=== PATIENT | male | born 1965 | race Two or more races ===

== ENCOUNTER 2020-01-15 18:51 | Emergency (ER) | payer SELFPAY ==
[2020-01-15 18:53] VITALS: BP 153/92; PULSE 83; RESP 18; TEMP 37.3; O2SAT 98; BMI 21.6
[2020-01-15 19:11] VITALS: BP 153/94; PULSE 83; RESP 18; TEMP 37.3; O2SAT 98
--- NOTE | 2020-01-15 19:20 | HMH.EDUTC ---
[facility] [place] Disposition Clinical Impression: Mouth problem Disposition: Home, Self-Care Condition on Discharge: Good Instructions: Doxycycline Additional Instructions: Gargle warm salt water and warm water with baking soda to help with mouth pain Take medication as prescribed Keep appointment in Dr Abrams office on Sunday as scheduled Return if needed Straight to ER if any life threatening symptoms Soft foods may be easier to eat Go straight to ER if you have trouble breathing Prescriptions: Doxycycline Monohydrate [Doxycycline Lemhi 100mg Tab] 100 mg PO BID 10 Days #20 tab Prescription Printed Referrals: PCP,Humera [Primary Care Provider] - Trevon Skinner MD [Staff Physician] - 01/19/20 12:30 pm Forms: Work/School Release Time of Disposition: 19:27 Medical Decision Making - Aaron Inquiry Pt receiving controlled substance: Humera Walker was queried for this patient: No Vital Signs: 01/15/20 18:53 01/15/20 19:11 Temperature 99.2 F 99.2 F Temperature Source Oral Pulse Rate 83 Pulse Rate [Left] 83 Respiratory Rate 18 18 Blood Pressure 153/94 H Blood Pressure [Right Arm] 153/92 H Blood Pressure Mean [Right Arm] 112 Blood Pressure Source [Right Arm] Automatic Cuff Blood Pressure Position [Right Arm] Sitting 02 Sat by Pulse Oximetry 98 Oxygen Delivery Method Room Air - Physician Consults Physician Consulted: Brody Time: 18:55 Reason -: ENT Eval/Care Comment/Response: Spoke with Dr Skinner and described area observed on roof of mouth, advised to place patient on Doxy 100mg BID and he would see him in the office at 1230 on SundayJan 18 for further treatment and evaluation [facility] [place] HPI - General Stated complaint: inside of mouth infected Time Seen by Provider: 01/15/20 19:20 Mode of Arrival: Ambulatory Source of Information: Patient Limitations: No Limitations Description of Symptoms (Recalled from Triage Doc. by RN): Pt c/o of mouth pain and thinks it is infected x1 week HEENT Symptoms (Recalled from RN notes): No Resp Symptoms (Recalled from RN notes): No Skin Symptoms (Recalled from RN notes): Yes MS Symptoms (Recalled from RN notes): No Functional Status (Recalled from RN notes): WNL - History of Present Illness Provider Complaint: Patient states that he has been having pain on the right side of the roof of his mouth States that he noticed it looked swollen and hard and uncomfortable States that he noticed it about a week ago and it has continued to get worse States that he came in tonight because he was uncomfortable when he eat and came in to see if may need antibiotics - Related Data Previous Rx's Medication Instructions Recorded Doxycycline Monohydrate 100 mg PO BID 10 Days #20 tab 01/15/20 [Doxycycline Lemhi 100mg Tab] Allergies Allergy/AdvReac Type Severity Reaction Status Date / Time No Known Allergies Allergy Unverified 09/06/18 10:47 - Worker's Comp Is this a Worker's Comp case?: No Is this an [employer] Worker's Comp?: No Is this a Haritha Worker's Comp?: No [facility] History - Hepatitis A Screen Drug use history?: No High risk sexual behaviors?: No History of sexually transmitted infection?: No Currently employed?: No Childcare worker?: No Do you have indoor plumbing?: Yes Do you have electricity?: Yes Attestation statement:: This patient has been screened for Hepatitis A risk factors. I have reviewed the patient's past medical history: Yes Medical History: Denies:: Cancer, Diabetes Mellitus Type 1, Diabetes Mellitus Type 2, Internal Pacemaker, MRSA Other Surgeries: No: Pacemaker Amputation: No Fractures: No - Social History Smoking Status: Current every day smoker Tobacco Type: cigarettes # Packs/Day (cigarettes): 1 Alcohol Intake: never Occupational Status: employed ROS Obtained: Yes All systems reviewed & no additional complaints, Yes Systems reviewed as appropriate & no additional complaints - Constitutional Constitutional: Reports system revie
== END 2020-01-15 19:38 | disposition home or self-care (01) ==
PROVIDERS: Emergency Provider Nurse Practitioner
DX: K13.70 Unspecified lesions of oral mucosa (principal); F17.210 Nicotine dependence, cigarettes, uncomplicated
CPT/HCPCS: 99201

== ENCOUNTER → 2020-03-11 09:18 | Outpatient (CLI) | payer MEDICAID, SELFPAY ==
[2020-03-11 09:24] LABS: MANUAL DIFFERENTIAL MANUAL DIFFERENTIAL (MANUAL DIFF)
--- NOTE | 2020-03-11 09:35 | CT_ITS ---
PROCEDURE: CT FACIAL BONES WO/W CON CLINICAL HISTORY: rcurrent cyst roof of mouth possib. Abscess x 3 months COMPARISON: No exams were available for comparison TECHNIQUE: Axial images obtained with sagittal and coronal reformats. All CT scans at the facility use one or more dose reduction, viz: automated exposure control, ma/kV adjustment per patient size (including targeted exams where dose is matched to indication, i.e. head), or iterative reconstruction technique. FINDINGS: There is a 2 x 1.8 cm lucent lesion involving the right maxilla in the right paracentral region. This is causing expansion of the maxilla anteriorly and disruption of the posterior wall of the maxilla. The lesion does appear to be epicenter within the maxilla itself. The posterior wall the maxilla however is been eroded. The lesion measures approximately 40 Hounsfield units. Lucency is noted around the root of the right lateral incisor at this region. This route does communicate with the lucent lesion. The anterior margin of the maxilla is bowed anteriorly slightly and there is thinning but no aggressive destruction. No central calcifications evident within the lesion. CT of dentigerous cysts. No underlying soft tissue mass. No cervical adenopathy. There is mild mucosal thickening of the left maxillary sinus. No mastoid effusion. There are few scattered small lymph nodes in the neck. IMPRESSION: Well-circumscribed cystic lesion of the maxilla on the right as described above. There is slight bowing of the cortex anteriorly and disruption of the cortex posteriorly without significant enhancement. 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 Differential diagnosis includes unilocular ameloblastoma, or dentigerous cyst. An abscess is felt to be less likely. A chronic treated abscess would be included in the differential diagnosis. Dictated by: Salvatore Orosco MD 03/16/2020 09:19 Salvatore Orosco MD in [place] 03/16/2020 09:19
[2020-03-11 10:24] LABS: Basophils % 0.7 % (0.1-2.0); Eosinophils # 0.1 K/mm3 (0.0-0.4); Eosinophils % 1.3 % (0.1-12.0); Hematocrit 45.4 % (42.0-52.0); Hemoglobin 14.1 g/dL (14.1-18.0); Lymphocytes # 2.5 K/mm3 (0.7-4.5); Lymphocytes % 42.7 % (10-50); Mean Corpuscular HGB Conc 31.1 g/dL (31.8-35.4); Mean Corpuscular Hemoglobin 33.3 pg (27.0-31.2); Mean Platelet Volume 8.3 fl (7.4-10.4); Monocytes # 0.4 K/mm3 (0.1-1.0); Monocytes % 7.1 % (1.7-9.3); Neutrophils # 2.9 K/mm3 (1.8-7.8); Neutrophils % 48.2 % (37.0-80.0); Platelet Count 175 K/mm3 (142-424); Red Blood Count 4.24 M/mm3 (4.60-6.20); Red Cell Distribution Width 12.5 % (11.5-17.5); White Blood Count 5.9 K/mm3 (4.8-10.8)
[2020-03-11 10:48] LABS: Erythrocyte Sedimentation Rate 13 mm/hr (0-20)
[2020-03-11 11:06] LABS: Eosinophils % 2 % (0-3); Lymphocytes % 41 % (10-50); Monocytes % 4 % (2-9); Neutrophils % 53 % (42-76); Platelet Estimate Normal; Total Cells Counted 100
[2020-03-11 11:07] LABS: Anisocytosis 2+; Macrocytosis 2+
[2020-03-11 11:09] LABS: Chloride 98 mmol/L (98-107); Potassium 4.1 mmoL/L (3.5-5.1); Sodium 134 mmol/L (136-145)
[2020-03-11 11:12] LABS: Alanine Aminotransferase 23 U/L (12-78); Albumin Level 4.2 g/dl (3.5-5.0); Albumin/Globulin Ratio 1.5 (1.1-1.8); Alkaline Phosphatase 77 U/L (38-126); Anion Gap 10.1 mEq/L (5-15); Aspartate Amino Transferase 56 U/L (17-59); Bilirubin,Total 0.9 mg/dl (0.2-1.3); Blood Urea Nitrogen 5 mg/dl (9-20); Calcium 9.1 mg/dl (8.4-10.2); Carbon Dioxide 30 mmol/L (22.0-30.0); Estimated Glomerular Filt Rate 117 ml/min (>60); GFR (African American) 142 ML/MIN (>60); Globulin 2.8 g/dL (1.3-3.2); Glucose 102 mg/dl (74-100)
== END ==
PROVIDERS: Visit Provider Otolaryngology
DX: K09.9 Cyst of oral region, unspecified (principal); K12.2 Cellulitis and abscess of mouth; K13.70 Unspecified lesions of oral mucosa
CPT/HCPCS: 36415; 70488; 80053; 85007; 85014; 85018; 85048; 85049; 85651; Q9967

== ENCOUNTER 2020-12-08 10:24 | Emergency (ER) | payer SELFPAY ==
[2020-12-08 10:56] VITALS: BP 123/87; PULSE 85; RESP 19; TEMP 36.8; O2SAT 99; BMI 22.8
--- NOTE | 2020-12-08 11:01 | HMH.EDUTC ---
[facility] [place] Disposition Clinical Impression: Dental abscess Disposition: Home, Self-Care Condition on Discharge: Good Instructions: Tooth Abscess, Ibuprofen, Amoxicillin and Clavulanic Acid Additional Instructions: Take medication as prescribed Use dental balls as you was instructed Follow up with Dentist for further treatment and evaluation Return if needed Straight to ER if any life threatening symptoms Prescriptions: Ibuprofen [Ibuprofen 600mg Tablet] 600 mg PO Q6HP PRN #20 tab PRN Reason: Moderate Pain Transmission Status: Pending to [facility] # Amoxicillin/Potassium Clav [Augmentin 875-125 Tablet] 1 tab PO Q12H 10 Days #20 tab Transmission Status: Pending to [facility] # Referrals: Provider,Referral, MD [Primary Care Provider] - As needed Time of Disposition: 11:06 Medical Decision Making - Aaron Inquiry Pt receiving controlled substance: No Aaron was queried for this patient: No Vital Signs: 12/08/20 10:56 Temperature 98.2 F Temperature Source Oral Pulse Rate [Left] 85 Respiratory Rate 19 Blood Pressure [Right Arm] 123/87 Blood Pressure Mean [Right Arm] 99 02 Sat by Pulse Oximetry 99 Orders (Tests/Meds): ED MEDICATIONS Discontinued Medications Generic Name Dose Route Start Last Admin Trade Name Freq PRN Reason Stop Dose Admin Benzocaine/Butamben/Tetracaine HCl 1 gm 12/08/20 11:01 Tetracaine/Benzocaine/Butamben 56 Gm [place] TP 12/08/20 11:02 ONCE ONE Lidocaine HCl 15 ml 12/08/20 11:01 Lidocaine 2% Viscous Audrey 15ml Udc PO 12/08/20 11:02 ONCE ONE [facility] [place] HPI - General Stated complaint: abcess in mouth Time Seen by Provider: 12/08/20 11:01 Mode of Arrival: Ambulatory Source of Information: Patient Limitations: No Limitations Description of Symptoms (Recalled from Triage Doc. by RN): pt c/o pain in the top of his mouth. HEENT Symptoms (Recalled from RN notes): Yes (mouth pain) Resp Symptoms (Recalled from RN notes): No Skin Symptoms (Recalled from RN notes): No MS Symptoms (Recalled from RN notes): No Functional Status (Recalled from RN notes): na - History of Present Illness Provider Complaint: Patient states that he has had a bad tooth on his right upper back tooth States that he has been waiting to see dentist States that now he is having pain and swelling in his right upper gums/jaw area and thinks his tooth is infected like it has been before so he came in to get some antibiotics - Related Data Previous Rx's Medication Instructions Recorded Amoxicillin/Potassium Clav 1 tab PO Q12H 10 Days #20 tab 12/08/20 [Augmentin 875-125 Tablet] Ibuprofen [Ibuprofen 600mg 600 mg PO Q6HP PRN #20 tab 12/08/20 Tablet] Allergies Allergy/AdvReac Type Severity Reaction Status Date / Time No Known Allergies Allergy Verified 12/08/20 11:01 - Worker's Comp Is this a Worker's Comp case?: No [facility] History - Hepatitis A Screen Drug use history?: No High risk sexual behaviors?: No History of sexually transmitted infection?: No Currently employed?: No Childcare worker?: No Do you have indoor plumbing?: Yes Do you have electricity?: Yes Attestation statement:: This patient has been screened for Hepatitis A risk factors. I have reviewed the patient's past medical history: Yes Medical History: Denies:: Cancer, Diabetes Mellitus Type 1, Diabetes Mellitus Type 2, Internal Pacemaker, MRSA Other Surgeries: Yes: No Previous Surgery, Other. No: Pacemaker Amputation: No Fractures: No - Social History Smoking Status: Current every day smoker Tobacco Type: cigarettes # Packs/Day (cigarettes): 1 Alcohol Intake: never Substance Use Type: denies use Occupational Status: employed Family Hx:: Hyperlipidemia ROS Obtained: Yes All systems reviewed & no additional complaints, Yes Systems reviewed as appropriate & no additional complaints - Constitutional Constitutional: Reports system reviewed and no additional
[2020-12-08 11:03] VITALS: BP 119/80; PULSE 84; RESP 19; TEMP 36.9
== END 2020-12-08 11:15 | disposition home or self-care (01) ==
PROVIDERS: Emergency Provider Nurse Practitioner
DX: K04.7 Periapical abscess without sinus (principal); K02.9 Dental caries, unspecified; F17.210 Nicotine dependence, cigarettes, uncomplicated
CPT/HCPCS: 99202; G0463

== ENCOUNTER 2021-05-22 13:14 | Emergency (ER) | payer OTHER, SELFPAY ==
[2021-05-22 15:25] VITALS: BP 120/69; PULSE 77; RESP 18; TEMP 37.1; O2SAT 99; BMI 20.5
[2021-05-22 15:27] VITALS: BP 120/69; PULSE 77; RESP 18; TEMP 37.1; O2SAT 99
--- NOTE | 2021-05-22 15:29 | HMH.EDUTC ---
[facility] [place] Clinical Impression: Encounter for laboratory testing for COVID-19 virus Disposition: Home, Self-Care Condition on Discharge: Good Instructions: DI for COVID-19 (Suspected or Confirmed ), Preventing the Spread of Coronavirus Discharge Instructions Additional Instructions: *Monitor Temp, Over the counter Motrin or Tylenol as directed/as needed Tylenol every 4 hours and Motrin every 6 hours (as long as your family doctor has told you that you can take it) for fever or pain. and straight to ER if unable to lower temp less than 101.0 after medication given *Warm salt water gargles may help to soothe the throat *Throat Lozenges *Warm fluids like tea with honey may help to soothe the throat *Sleep elevated *Humidifier/Vaporizer Follow up IMMEDIATELY for new or worsening symptoms or no Noticeable improvement over the next 48-72 hours. 911 for difficulty breathing or swallowing You were tested for today for COVID19 your test result should be back in the next 24-48 hours, you may check your results on the [facility] [facility] Portal if you have trouble logging on you may call [employer] support for assistance You was given a handout with instructions for Self Quarantine and Self isolation for while you wait on test results and what to do if they are positive If you are positive the Health Dept will be contacting you also Make sure to take your Vitamins Vit. C Vit D and Zinc if you can take them Referrals: Provider,Referral, [Primary Care Provider] - Time of Disposition: 15:31 Medical Decision Making - Aaron Inquiry Pt receiving controlled substance: No Aaron was queried for this patient: No Vital Signs: 05/22/21 15:25 05/22/21 15:27 Temperature 98.7 F 98.7 F Temperature Source Oral Oral Pulse Rate 77 Pulse Rate [Left Radial] 77 Respiratory Rate 18 18 Blood Pressure 120/69 Blood Pressure [Right Arm] 120/69 Blood Pressure Mean [Right Arm] 86 Blood Pressure Source [Right Arm] Automatic Cuff Blood Pressure Position [Right Arm] Sitting 02 Sat by Pulse Oximetry 99 Oxygen Delivery Method Room Air Room Air Orders (Tests/Meds): ORDERS Category Date Time Status Covid-19 Nasal PCR ([facility]) Routine Lab 05/22/21 15:27 Ordered [facility] [place] HPI - General Stated complaint: covid exposed, test Time Seen by Provider: 05/22/21 15:29 Mode of Arrival: Ambulatory Source of Information: Patient Limitations: No Limitations Description of Symptoms (Recalled from Triage Doc. by RN): c/o KHANNA, cough and congestion HEENT Symptoms (Recalled from RN notes): Yes Resp Symptoms (Recalled from RN notes): No Skin Symptoms (Recalled from RN notes): No MS Symptoms (Recalled from RN notes): No Functional Status (Recalled from RN notes): na - History of Present Illness Provider Complaint: Patient states that he was recently exposed to someone that was positive for COVID States that he has been having cough, nasal congestion and cough State that he wanted to get tested for COVID - Related Data Previous Rx's Medication Instructions Recorded Amoxicillin/Potassium Clav 1 tab PO Q12H 10 Days #20 tab 12/08/20 [Augmentin 875-125 Tablet] Ibuprofen [Ibuprofen 600mg 600 mg PO Q6HP PRN #20 tab 12/08/20 Tablet] Allergies Allergy/AdvReac Type Severity Reaction Status Date / Time No Known Allergies Allergy Verified 12/08/20 11:01 - Worker's Comp Is this a Worker's Comp case?: No [facility] History - Hepatitis A Screen Drug use history?: No High risk sexual behaviors?: No History of sexually transmitted infection?: No Currently employed?: No Childcare worker?: No Do you have indoor plumbing?: Yes Do you have electricity?: Yes Attestation statement:: This patient has been screened for Hepatitis A risk factors. I have reviewed the patient's past medical history: Yes Medical History: Denies:: Cancer, Diabetes Mellitus Type 1, Diabetes Mellitus Type 2, Internal Pacemaker, MRSA Other Surgeries: Yes: No Prev
== END 2021-05-22 15:36 | disposition home or self-care (01) ==
PROVIDERS: Emergency Provider Nurse Practitioner
DX: U07.1 COVID-19 (principal); F17.210 Nicotine dependence, cigarettes, uncomplicated
CPT/HCPCS: 99202; C9803; G0463; U0003; U0005

== ENCOUNTER 2021-12-12 16:37 | Emergency (ER) | payer SELFPAY ==
[2021-12-12 17:25] VITALS: BP 134/79; PULSE 78; RESP 19; TEMP 36.6; O2SAT 97; BMI 18.5
--- NOTE | 2021-12-12 17:59 | HMH.EDUTC ---
[facility] [place] Disposition Clinical Impression: Bee sting reaction Qualifiers: Encounter type: initial encounter Injury intent: undetermined intent Qualified Code(s): T63.444A - Toxic effect of venom of bees, undetermined, initial encounter Disposition: Home, Self-Care Condition on Discharge: Good Instructions: How to Care for an Insect Bite or Sting, Insect Bites and Stings, DI for Insect Bites and Stings Additional Instructions: Over the counter Benadryl may help with itching and swelling Start oral steriods tomorrow Follow up with [facility] for testing for allergy's Return if needed Straight to ER if any life threatening symptoms Prescriptions: methylPREDNISolone [Medrol 4mg tab] 4 mg PO DIRECTED #21 tab Transmission Status: Received by [facility] #[id number] Referrals: Provider,Referral, MD [Primary Care Provider] - Forms: Work/School Release Time of Disposition: 18:23 Medical Decision Making - Aaron Inquiry Pt receiving controlled substance: No Aaron was queried for this patient: No Vital Signs: 12/12/21 17:25 12/12/21 18:17 Temperature 97.8 F 97.8 F Temperature Source Oral Pulse Rate 78 Pulse Rate [Right Brachial] 78 Respiratory Rate 19 19 Blood Pressure 134/79 Blood Pressure [Right Arm] 134/79 Blood Pressure Mean [Right Arm] 97 Blood Pressure Source [Right Arm] Automatic Cuff Blood Pressure Position [Right Arm] Sitting 02 Sat by Pulse Oximetry 97 Oxygen Delivery Method Room Air Orders (Tests/Meds): ED MEDICATIONS Discontinued Medications Generic Name Dose Route Start Last Admin Trade Name Freq PRN Reason Stop Dose Admin Diphenhydramine HCl 25 mg 12/12/21 18:03 12/12/21 18:10 Diphenhydramine 50mg/Ml Vial IM 12/12/21 18:04 25 mg ONCE ONE Administration Famotidine 20 mg 12/12/21 18:03 12/12/21 18:17 Famotidine 20mg Tablet PO 12/12/21 18:04 20 mg ONCE ONE Administration Loratadine 10 mg 12/12/21 18:04 12/12/21 18:17 Loratadine 10mg Tablet PO 12/12/21 18:05 10 mg ONCE ONE Administration Methylprednisolone Sodium Succinate 125 mg 12/12/21 18:03 12/12/21 18:10 Methylprednisolone Sod Succ 125mg Vial IM 12/12/21 18:04 125 mg ONCE ONE Administration [facility] [place] HPI - General Stated complaint: AO 12/11 @1500 Bee sting Time Seen by Provider: 12/12/21 17:59 Mode of Arrival: Ambulatory Source of Information: Patient, Spouse Limitations: No Limitations Description of Symptoms (Recalled from Triage Doc. by RN): PATIENT C/O WASP STING TO RIGHT HAND YESTERDAY HEENT Symptoms (Recalled from RN notes): No Resp Symptoms (Recalled from RN notes): No Skin Symptoms (Recalled from RN notes): Yes MS Symptoms (Recalled from RN notes): No Functional Status (Recalled from RN notes): WNL - History of Present Illness Provider Complaint: Patient states that he was stung on his right hand twice by wasp yesterday States that he took benadryl last night but the swelling has continued to get worse today and starting to spread up his wrist so they brought him in - Related Data Previous Rx's Medication Instructions Recorded methylPREDNISolone [Medrol 4mg 4 mg PO DIRECTED #21 tab 12/12/21 tab] Allergies Allergy/AdvReac Type Severity Reaction Status Date / Time No Known Allergies Allergy Verified 12/08/20 11:01 - Worker's Comp Is this a Worker's Comp case?: No [facility] History - Hepatitis A Screen Attestation statement:: This patient has been screened for Hepatitis A risk factors. I have reviewed the patient's past medical history: Yes Medical History: Denies:: Cancer, Diabetes Mellitus Type 1, Diabetes Mellitus Type 2, Internal Pacemaker, MRSA Other Surgeries: Yes: No Previous Surgery, Other. No: Pacemaker Amputation: No Fractures: No - Social History Smoking Status: Current every day smoker Tobacco Type: cigarettes # Packs/Day (cigarettes): 1 Alcohol Intake: never Substance Use Type: denies use Occupational
[2021-12-12 18:17] VITALS: BP 134/79; PULSE 78; RESP 19; TEMP 36.6; O2SAT 97
== END 2021-12-12 18:25 | disposition home or self-care (01) ==
PROVIDERS: Emergency Provider Nurse Practitioner
DX: T63.461A Toxic effect of venom of wasps, accidental (unintentional), initial encounter (principal); M79.89 Other specified soft tissue disorders
CPT/HCPCS: 99212; G0463